=== PATIENT | female | born 1945 | race Caucasian/White ===

== ENCOUNTER 2024-08-23 14:56 | Inpatient (IN) | payer MEDICARE, SELFPAY ==
[2024-08-23] VITALS (18 sets, daily range): BP systolic 113–216; BP diastolic 54–97; PULSE 59–87; RESP 14–29; TEMP 36.4–36.6; O2SAT 89–100; BMI 19.9
--- NOTE | ~2024-08-23 | CT_ITS ---
CT abdomen pelvis w con Ordering provider: Wyatt Ibrahim MD History: 79 years Female with . abdominal pain . Comparison: None. Technique: CT abdomen and pelvis with IV and without oral contrast. Automated exposure control and it erative reconstruction technique were employed. The dose-length product was 207.72 mGy-cm. 100 mL Omn ipaque 350 was given IV. Findings: VISUALIZED LOWER CHEST: Normal. UPPER ABDOMINAL ORGANS: Liver: Normal. Gallbladder: Slightly contracted. Dilated CBD measuring 1.2 cm. Spleen: Normal. Stomach/duodenum: Slightly thickened wall of the stomach. Clinical correlation advised. Pancreas: Normal. Dilated pancreatic duct. Follow-up advised. Adrenals: Normal. Kidneys: Normal. PELVIC ORGANS: The bladder is underfilled with thickened wall. BOWEL AND MESENTERY: Colon: No evidence of diverticulitis. The appendix is not demonstrated. Small Bowel: Normal. No obstruction. Peritoneum/mesentery: No free air or free fluid. No mesenteric lymphadenopathy. RETROPERITONEUM: Aneurysmal dilatation the distal ureters seen measuring 3.2 x 2.8 cm. Moderate ather omatous disease of the abdominal aorta. intramural thrombosis seen in the proximal abdominal aorta. No retroperitoneal lymphadenopathy. MUSCULOSKELETAL: Superficial soft tissues: The superficial soft tissues are normal. Bones: Age appropriate degenerative changes of the spine. IMPRESSION: 1. No evidence of appendicitis, diverticulitis or intestinal obstruction. 2. Abdominal aortic aneurysm measuring 3.2 x 2.8 cm. 3. Dilated common bile duct and pancreatic duct. Follow-up advised. Reviewed, dictated and finalized at location A.
--- NOTE | ~2024-08-23 | US_ITS ---
Limited Abdominal Sonogram: Real-time sonographic imaging of the right upper quadrant was performed. Clinical History: Cholecystitis Findings: The liver appears normal and echotexture. Possible minimal intrahepatic biliary dilatation . Main portal vein demonstrates normal direction of flow. The gallbladder is well distended, and appe ars normal with no evidence of gallstone or wall thickening. The common bile duct measures 8 mm. The visualized pancreas, aorta, and IVC are unremarkable. Impression: Minimally prominent intrahepatic and extra hepatic biliary tree. Correlate with LFTs and clinical fin dings. Consider MRCP for further evaluation as indicated. Reviewed, dictated and finalized at location M. Impression: Minimally prominent intrahepatic and extra hepatic biliary tree. Correlate with LFTs and clinical findings. Consider MRCP for further evaluation as indicated.
--- NOTE | ~2024-08-23 | CT_ITS ---
CTA chest PE protocol Ordering provider: Tyler Black MD History: 79 years Female with . r/o PE . Comparison: None. Technique: CT angiogram chest was performed following timed intravenous injection of contrast. Thin s lice axial images and reformatted coronal images were obtained. Three dimensional reformatted images of the chest were also obtained using a [employer] workstation. . Automated exposure control and iterati ve reconstruction technique were employed. The dose-length product was 191.77 mGy-cm. 100 mL Omnipaqu e 350 was given IV. Findings: PULMONARY ARTERIES: No pulmonary embolus. VISUALIZED THORACIC INLET: Normal. MEDIASTINUM: Aorta/coronary arteries: Mild atheromatous disease. Aberrant right Subclavian artery is noted. Heart/other: The heart is not enlarged. Lymph nodes: No mediastinal or hilar adenopathy. LUNGS: Nodule is seen in the right upper lobe anteriorly measuring 9.2 x 8.8 mm. 3 months follow-up CT is ad vised. Groundglass appearance nodule is also seen in the left upper lobe measuring 1.2 x 1 cm. Atelectasis versus pneumonia is seen in the right upper lobe adjacent to the fissure extending to th e hilum. Fibrotic or post radiation changes are possible. Clinical correlation advised. No pulmonary masses. No effusions. No pneumothorax. VISUALIZED UPPER ABDOMEN: Small sliding hiatus hernia. contrast is seen in the pelvic calyceal system bilaterally. Otherwise, the visualized upper abdomen i s normal. MUSCULOSKELETAL: Soft tissues: The superficial soft tissues are normal. Bones: Age appropriate degenerative changes of the spine. IMPRESSION: 1. No pulmonary embolism. 2. Focal area of atelectasis versus pneumonia extending to the right hilum. Differential include fib rotic changes and postradiation changes. Clinical correlation advised. 3. Nodules in the right and left upper lobes. 3 months follow-up CT is advised. 4. Aberrant right subclavian artery. Reviewed, dictated and finalized at location A. IMPRESSION: 1. No pulmonary embolism. 2. Focal area of atelectasis versus pneumonia extending to the right hilum. Di fferential include fibrotic changes and postradiation changes. Clinical correla tion advised. 3. Nodules in the right and left upper lobes. 3 months follow-up CT is advised . 4. Aberrant right subclavian artery.
--- NOTE | ~2024-08-23 | XR_ITS ---
XR chest 1V portable 08/23/2024 15:24 Indication: Weakness Procedure: 2 view chest Comparison: 04/06/2010 Findings: Linear infiltrate of the right suprahilar region. Heart size normal. There is atheroscleros is and ectasia of the aorta. No edema, pleural effusion or pneumothorax. No acute osseous abnormality . Impression: 1: Linear infiltrate right suprahilar region. Differential diagnosis includes atelectasis/scarring an d pneumonia. Reviewed, dictated and finalized at location A. Impression: 1: Linear infiltrate right suprahilar region. Differential diagnosis includes a telectasis/scarring and pneumonia.
--- NOTE | 2024-08-23 15:06 | ECG_ITS ---
Test Date: 2024-08-23 15:16:14 Measurements Intervals [place] Rate: 64 P: 69 GA: 201 QRS: -79 QRSD: 101 T: 33 QT: 384 QTc: 397 Interpretive Statements SINUS RHYTHM INCOMPLETE RIGHT BUNDLE BRANCH BLOCK [90+ ms QRS DURATION, TERMINAL R IN V1/V2, 40+ ms S IN I/aVL/V4/V5/V6] LEFT ANTERIOR FASCICULAR BLOCK [QRS AXIS <= -45, QR IN I, RS IN II] No previous ECG available for comparison Electronically Signed On 08-23-2024 18:24:59 CDT by Perri Wong
[2024-08-23] MEDS: diazePAM INJ (*CRX) 10 MG/2 ML SYRINGE 2.5 MG IV PUSH ×2 (15:13→18:27)
[2024-08-23] MEDS: SODIUM CHLORIDE 0.9% IV 1,000 ML 999 ML IV CONT (15:13)
[2024-08-23] MEDS: ONDANSETRON INJ 4 MG/2 ML VIAL IV PUSH ×2 (15:13→20:31)
--- OUTSIDE RECORDS SUMMARY | 2024-08-23 15:16 | XMS_ITS ---
Author Name Auto Generated, Auto Generated Organization [facility] Address [address] [place] [address] Phone [phone] Care Team Providers Care Lumber Sorter Name Role Phone Jak Juan [phone] Functional Status No Results Mental Status No Results Allergies and Intolerances Name Onset Date Reaction Severity Latex (Allergy) WedMar 13 01:43:00 EST 2023 codeine (Allergy) WedMar 13 01:43:00 EST 2023 morphine (Allergy) WedMar 13 01:43:00 EST 2023 lamotrigine (Allergy) WedMar 13 01:43:00 EST 20 24 Encounters Program Name Primary Diagnosis Admission Date/Time Dis charge Date/Time Home-based Hospice Sat Mar 11 19 :00:00 EST 2023 Sat May 27 18:59:00 EST 2024 null WedMar 27 19:00 :00 EST 2023 Medications Medication Directions Start Date End Date predniSONE 20 mg tablet 40 mg TABLET Ora l Every 1 Day for 5 Days COPD Wed Feb 01:00:00 EST 2024e Feb 11 15:57:00 EST 2024 Levaquin 500 mg tablet 500 mg TABLET Ora l Every 1 Day for 10 Days EXACERBATION Wed Feb 02 10:00:00 EST 2024e Feb 11 15:57:00 EST 2024 Levaquin 500 mg tablet 500 mg TABLET Ora l Every 1 Day for 10 Days EXACERBATION e Feb 01:00:00 EST 2024 Sat Feb 15 01:00:00 EST 2024 predniSONE 20 mg tablet 40 mg TABLET Ora l Every 1 Day for 5 Days COPD e Feb 01:00:00 EST 2024 Sat Feb 15 01:00:00 EST 2024 traZODone 50 mg tablet 50 mg TABLET Oral 3 Times Daily anxiety WedMay 10:00:00 EST 2024 Sat Feb 15 :00: EST 2024 ipratropium 0.5 mg-albuteroL 3 mg (2.5 mg base)/3 mL nebulization soln 1 vial AMPUL FOR NEBULIZATION (ML) Nebulization PRN for dyspnea WedApr 28:00:00 EST 2024 Sat Feb 15 :00: EST 2024 ondansetron 4 mg disintegrating tablet 4 mg TABLET,DISINTEGRATING Oral PRN q 4 hr WedApr 26:00: EST 2024 Sat Feb 15 :00:00 EST 2024 Requip 0.5 mg tablet 0.5 mg TABLET Oral Hour Of Sleep WedApr 20:00:00 EST 2024 Sat Feb 15 :00:00 EST 2024 traZODone 50 mg tablet 50 mg TABLET Oral 2 Times Daily WedApr 17:00:00 EST 2024May 10 12:17:00 EST 2024 Macrobid 100 mg capsule 100 mg CAPSULE O ral 2 Times Daily for 5 Days POSSIBLE UTI WedApr 10:00:00 EST 2023Apr 15 00:59:00 EST 2024 Mucinex 600 mg tablet, extended release bid TABLET, EXTENDED RELEASE 12 HR Oral PRN, 2 Times Daily cough congestion WedApr 03:00:00 EST 2023 Sat Feb 15 :00:00 EST 2024 OxyCONTIN 60 mg tablet,extended release 60 MG TABLET, EXTENDED RELEASE 12 HR Oral 2 Times Daily WedMar 30:: EST 2023Apr 17 16:02:00 EST 2024 OxyCONTIN 60 mg tablet,crush resistant,extended release 60 MG TABLET,ORAL ONLY,EXTENDED RELEASE 12 HR Oral Every 12 Hours WedMar 30:00:00 EST 2023 Sat Feb 15 :00:00 EST 2024 predniSONE 10 mg tablet 1 tab TABLET Ora l Every 1 Day for 3 Days WedMar 21:00:00 EST 2023Mar 24 00:59:00 EST 2023 SeroqueL 25 mg tablet 25 MG TABLET Oral 2 Times Daily behaviors WedMar 20:00:00 EST 2023 Sat Feb 15 :00:00 EST 2024 predniSONE 10 mg tablet 2 tabs TABLET Or al 1 Time Daily for 3 Days WedMar 18:00: EST 2023Mar 21 00:59:00 EST 2023 predniSONE 10 mg tablet 3tabs TABLET Ora l Every 1 Day for 3 Days COPD WedMar 15:00: EST 2023Mar 18 00:59:00 EST 2023 predniSONE 10 mg tablet 4 tabs TABLET Or al Every 1 Day for 3 Days WedMar 12:00: EST 2023Mar 15 00:59:00 EST 2023 morphine concentrate 20 mg/mL oral syringe (FOR ORAL USE ONLY) 0.5 ml SYRINGE (ML) Sublingual PRN Every 2 Hours SOB, pain WedMar 12:: EST 2023 Sat Feb 15 :: EST 2024 LORazepam IntensoL 2 mg/mL oral concentrate 0.25 ml CONCENTRATE, ORAL Sublingual PRN Every 4 Hours SOB, anxiety WedMar 12:00:00 EST 2023 Sat Feb 15 01:00:00 EST 2024 atropine 1 % eye drops 2 gtts DROPS Subl ingual PRN Every 2 Hours secretions WedMar 12:00: EST 2023 Sat Feb 15 01:00:00 EST 2024 albuterol sulfate HFA 90 mcg/actuation aerosol inhaler 2 puffs HFA AEROSOL WITH ADAPTER (GRAM) Inhalation PRN Every 6 Hours wheezing WedMar 12:: EST 2023 Sat Feb 15 01:00:00 EST 2024 ARIPiprazole 2 mg tablet 2 tabs TABLET O ral Every 1 Day for 2 Days bipolar WedMar 12:: EST 2023Mar 14 00:59:00 EST 2023 azithromycin 500 mg tablet 1 tab TABLET Oral Every 1 Day COPD WedMar 12: EST 2023 Sat Feb 15 01:00:00 EST 2024 DULoxetine 30 mg capsule,delayed release 1 tab CAPSULE,DELAYED RELEASE (ENTERIC COATED) Oral Hour Of Sleep depression WedMar 12: EST 2023 Sat Feb 15 :00: EST 2024 LORazepam 1 mg tablet 1 tab TABLET Oral PRN Every 6 Hours anxiety WedMar 12:00:00 EST 2023 Sat Feb 15 01:00:00 EST 2024 methocarbamoL 500 mg tablet 1 tab TABLET Oral PRN 3 Times Daily muscle relaxant WedMar 12:00:00 EST 2023 Sat Feb 15 01:00:00 EST 2024 oxyCODONE 30 mg tablet 1 tab TABLET Oral PRN Every 4 Hours pain WedMar 12 01:00:00 EST 2023 Sat Feb 15 01:00:00 EST 2024 OxyCONTIN 30 mg tablet,extended release 1 tab TABLET, EXTENDED RELEASE 12 HR Oral 2 Times Daily pain WedMar 12 01:00:00 EST 2023Apr 17 16:02:00 EST 2024 Problems Active Concerns * Chronic obstructive pulmonary disease, unspecified* Code: * Start Date: WedMar 12 00:00:00 EST 2023 * End Date: * Text: * Patient's noncompliance with other medical treatment and regimen due to unspecified reason* Code: * Start Date: WedMar 12 00:00:00 EST 2023 * End Date: * Text: * Presence of left artificial knee joint* Code: * Start Date: WedMar 12 00:00:00 EST 2023 * End Date: * Text: * Personal history of urinary (tract) infections* Code: * Start Date: WedMar 12 00:00:00 EST 2023 * End Date: * Text: * Repeated falls* Code: * Start Date: WedMar 12 00:00:00 EST 2023 * End Date: * Text: * Anxiety disorder, unspecified* Code: * Start Date: WedMar 12 00:00:00 EST 2023 * End Date: * Text: * Gastro-esophageal reflux disease without esophagitis* Code: * Start Date: WedMar 12 00:00:00 EST 2023 * End Date: * Text: * Abdominal aortic ectasia* Code: * Start Date: WedMar 12 00:00:00 EST 2023 * End Date: * Text: * Other intervertebral disc degeneration, lumbar region without mention of lumbar back pain or lower extremity pain* Code: * Start Date: WedMar 12 00:00:00 EST 2023 * End Date: * Text: * Bipolar disorder, unspecified* Code: * Start Date: WedMar 12 00:00:00 EST 2023 * End Date: * Text: * Dorsalgia, unspecified* Code: * Start Date: WedMar 12 00:00:00 EST 2023 * End Date: * Text: * Other chronic pain* Code: * Start Date: WedMar 12 00:00:00 EST 2023 * End Date: * Text: * Anemia in neoplastic disease* Code: * Start Date: WedMar 12 00:00:00 2023 * End Date: * Text: * Malignant neoplasm of upper lobe, right bronchus or lung* Code: * Start Date: WedMar 12 00:00:00 2023 * End Date: * Text: * Dysphagia, unspecified* Code: * Start Date: WedMar 12 00:00:00 2023 * End Date: * Text: * Traumatic hemorrhage of cerebrum, unspecified, without loss of consciousness, subsequent encounter* Code: * Start Date: WedMar 12 00:00:00 EST 2023 * End Date: * Text: * Traumatic subdural hemorrhage without loss of consciousness, subsequent encounter* Code: * Start Date: WedMar 12 00:00:00 EST 2023 * End Date: * Text: * Fracture of angle of right mandible, subsequent encounter for fracture with routine healing* Code: * Start Date: WedMar 12 00:00:00 2023 * End Date: * Text: * Multiple fractures of ribs, right side, subsequent encounter for fracture with routine healing* Code: * Start Date: WedMar 12 00:00:00 2023 * End Date: * Text: * Essential (primary) hypertension* Code: * Start Date: WedMar 12 00:00:00 2023 * End Date: * Text: * Acute and chronic respiratory failure with hypercapnia* Code: * Start Date: WedMar 12 00:00:00 2023 * End Date: * Text: * Acute and chronic respiratory failure with hypoxia* Code: * Start Date: WedMar 12 00:00:00 2023 * End Date: * Text: * [facility]SS_Bereavement - [place] is at high risk for ()Homicidal/Suicidal ideation, (X)Circumstances of (complicated), (X)inadequate coping skills, ( )Disenfranchised Grief, (X)Inadequate Support Systems, ( )Legal concerns, ( )Financial concerns, (X)Signs of distress (sleep, nutrition, socialization, or health deficits).* Code: * Start Date: WedMar 28 00:00:00 2023 * End Date: * Text: LSS_Bereavement - [place] is at high risk for ()Homicidal/Suicidal ideation, (X)Circumstances of (complicated), (X)inadequate coping skills, ( )Disenfranchised Grief, (X)Inadequate Support Systems, ( )Legal concerns, ( )Financial concerns, (X)Signs of distress (sleep, nutrition, socialization, or health deficits). * [facility]SS_Bereavement History- [place] (X)has a history of emotional challenges, ( )history of family violence, ( )abuse, ( )neglect, ()chemical dependency, ( )codependence, ( )Dementia, ( )Psychiatric/mental health history, (X) Chronic and terminal illnesses.* Code: * Start Date: WedMar 28 00:00:00 EST 2023 * End Date: * Text: LSS_Bereavement History- [place] (X)has a history of emotional challenges, ( )history of familyviolence, ( )abuse, ( )neglect, ()chemical dependency, ( )codependence, ( )Dementia, ( )Psychiatric/mental health history, (X) Chronic and terminal illnesses. Reason for Referral
--- OUTSIDE RECORDS SUMMARY | 2024-08-23 15:16 | XMS_ITS | Clinical Summary ---
Author Organization [facility] Address [address] [place] [id number] Care Team Providers Care Websphere Commerce Consultant Name Role Phone Unavailable Primary Care Provider Unavailabl e Social History Tobacco Use Types Packs/Day Years Used Date Smoking Tobacco: Never Assessed Comments Unknown Sex and Gender Information Value Date Recorded Sex Assigned at Not on file Legal Sex Female 8:23 PM CDT Gender Identity Not on file Sexual Orientation Not on file Plan of Treatment Health Maintenance Due Date Last Done Comments Hepatitis C 1963 DTaP, Tdap and Td Vaccines ( 1 - Tdap) 1966 Pneumococcal Vaccine: 50+ Ye ars (1 of 1 - PCV) 1997 Zoster Vaccines (1 of 2) 1997 Dexa Scan (General) 2012 RSV Immunization or 60+ Years (1 - 1-dose 75+ series) 2022 COVID-19 Vaccine (2023-2 5 season) 2023 Meningococcal B Vaccine Aged Out No l onger eligible based on patient's age to complete this topic Meningococcal Vaccine Aged Out No derek melinda eligible based on patient's age to complete this topic RSV Immunizations Under 20 Months Aged Out No longer eligible based on patient's age to complete this topic
--- OUTSIDE RECORDS SUMMARY | 2024-08-23 15:16 | XMS_ITS | Patient Health Record ---
Author Organization [facility] Address [address] [place] [address] Care Team Providers Care Malt Liquors Sales Supervisor Name Role Phone Mendoza Reed Primary Care Provider Roxana Simms [phone] Allergies Allergen (clinical drug ingredient) Drug/Non Drug Allergy documented on EMR Reaction Allergy Type Onset Date Status Codeine Phosphate Unknown Drug Allergy Active lamotrigine lamoTRIgine Unknown Drug Allergy Act armen morphine Morphine Sulfate Unknown Drug Allergy Active Latex Latex Unknown Allergy Active Results Component Value Reference Range Notes Vitamin B12 and Folate (Not yet reviewed by provider) Interpretation: Performing Lab:[facility] [address] [facility], Phone - [phone], Director - [facility]New [facility] Deacon[facility] Hospital[facility] Notes/Report: Vitamin B12 [phone] pg/mL Folate (Folic Acid), Serum 4.5 >3.0 ng/mL A serum folate concentration of less than 3.1 ng/mL is considered to represent clinical deficiency. CBC With Differential/Platel et* (Not yet reviewed by provider) Interpretation: Performing Lab:[facility], [address] [facility] Phone - [phone], Director - PhDRicchiuti Notes/Report: WBC 7.8 3.4-10.8 x10E3/uL RBC 5.15 3.77-5.28 x10E6/uL Hemoglobin 14.6 11.1-15.9 g/dL Hematocrit 44.6 34.0-46.6 % MCV 87 79-97 fL MCH 28.3 26.6-33.0 pg MCHC 32.7 31.5-35.7 g/dL RDW 13.5 11.7-15.4 % Platelets 245 150-450 x10E3/uL Neutrophils 75 Not Estab. % Lymphs 18 Not Estab. % Monocytes 5 Not Estab. % Eos 1 Not Estab. % Basos 1 Not Estab. % Neutrophils (Absolute) 5.9 1.4-7.0 x10E3/uL Lymphs (Absolute) 1.4 0.7-3.1 x10E3/uL Monocytes(Absolute) 0.4 0.1-0.9 x10E3/uL Eos (Absolute) 0.1 0.0-0.4 x10E3/uL Baso (Absolute) 0.1 0.0-0.2 x10E3/uL Immature Granulocytes 0 Not Estab. % Immature Grans (Abs) 0.0 0.0-0.1 x10E3/uL CMP 14 Comprehensive Metabol ic Panel* (Not yet reviewed by provider) Interpretation: Performing Lab:[facility] [place], [address] [facility], Phone - [phone], Director - Coty Notes/Report: Glucose 78 70-99 mg/dL BUN 13 8-27 mg/dL Creatinine 0.77 0.57-1.00 mg/dL eGFR 79 >59 mL/min/1.73 BUN/Creatinine Ratio 17 12-28 Sodium 142 134-144 mmol/L Potassium 4.5 3.5-5.2 mmol/L Chloride 100 96-106 mmol/L Carbon Dioxide, Total 27 20-29 mmol/L Calcium 9.1 8.7-10.3 mg/dL Protein, Total 7.2 6.0-8.5 g/dL Albumin 4.7 3.8-4.8 g/dL Globulin, Total 2.5 1.5-4.5 g/dL Bilirubin, Total <0.2 0.0-1.2 mg/dL Alkaline Phosphatase 86 44-121 IU/L AST (SGOT) 14 0-40 IU/L ALT (SGPT) 7 0-32 IU/L TSH Rfx on Abnormal to Free T4 (Not yet reviewed by provider) Interpretation: Performing Lab:[facility] [place], [address] [facility], [place], Phone - [phone], Director - Coty Notes/Report: TSH 0.585 0.450-4.500 uIU/mL Iron and TIBC* (Not yet revi ewed by provider) Interpretation: Performing Lab:[facility] [place], [address] [facility], [place], Phone - [phone], Director - Coty Notes/Report: Iron Bind.Cap.(TIBC) 326 250-450 ug/dL UIBC 235 118-369 ug/dL Iron 91 27-139 ug/dL Iron Saturation 28 15-55 % 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) Referral Organization [facility] Referring Provider First Name Mendoza Referring Provider Last Name Brianna Referring Provider Speciality Internal M edicine Referred Provider Specialty Home Health Care Referral Priority Routine Reason ANXIETY, LOSS OF HUS BAND, SHE AND HE WERE BOTH ON HOSPICE BUT SHE GOT BETTER Diagnosis 1 Anxiety (F41.9) Referral Organization [facility] Referring Provider First Name Ewa Referring Provider Last Name Mei edmonds Referring Provider Speciality Mental hea lt counseling Referred Provider Specialty Behavioral H ealt Referral Priority Routine Medications Medication SIG (Take, Route, Frequency, Duration) Notes Start Date End Date Status Methadone HCl 5 MG 1 tablet Orally twic e daily 08/18/2024 Active diazePAM 5 MG 1 tablet Orally 3 times a day for 14 days twice a day and at bedtime 08/18/2024 Active rOPINIRole HCl 0.5 MG 1 tablet Orally 3 times a day for 30 days twice a day and at bedtime Active traZODone HCl 100 MG 1 tablet at bedtime Orally Once a day for 30 days Active Albuterol Sulfate HFA 108 (90 Base) MCG/ACT 2 puffs as needed Inhalation three times daily Not-Taking Docusate Sodium 100 MG 1 capsule as need ed Orally Once a day for 30 day(s) Not-Taking Ondansetron HCl 4 MG 1 tablet Orally every 6 hours for 30 days As needed nausea or vomiting Active QUEtiapine Fumarate 25 MG 1 tablet at be dtime Orally Once a day for 30 days Active Debrox 6.5 % 5 drops into affecte d ear Otic Twice a day for 4 days 07/26/2024 Not-Taking Phenazopyridine HCl 100 MG 1 TABLET Oral ly 3 times a day for 2 days 08/18/2024 Active Sertraline HCl 50 MG 1 tablet Orally Onc e a day for 30 day(s) Active Nicotine 7 MG/24HR 1 patch to skin Transdermal Once a day for 30 days remove at bedtime 08/18/2024 Active Social History Tobacco Use: Social History Observation Description Date Details (start date - stop date) Never Smoker NA - NA Tobacco Control (Standard) Question Answer Notes Tobacco use: Nonsmoker Problems Problem Type SNOMED Code ICD Code Onset Dates Problem Status W/U Status Risk Notes Problem Chronic pain syndrome (117620199) Chronic pain syndrome (G89.4) Active confirmed Problem Emphysema (48461821) Emphysema, unspecified (J43.9) Active confirmed Problem Insomnia (697559085) Insomnia (G47.00) Active confirmed Problem Anxiety (03977943) Anxiety (F41.9) Active confirmed Problem COPD - Chronic obstructive pulmonary disease (98288029) COPD (chronic obstructive pulmonary disease) (J44.9) Active confirmed Problem Restless legs syndrome (03466656) Restless leg syndrome (G25.81) Active confirmed Problem Benzodiazepine dependence (017510316) Benzodiazepine dependence (F13.20) Active confirmed Problem Tobacco user (990859270) Cigarette nicotine dependence (F17.200) Active confirmed Problem Parkinson's disease (disorder) (32609096) Parkinson disease, symptomatic (G20.A1) Active confirmed Vital Signs Heart Rate 78 /min 08/18/2024 Temperature 97.8 degrees Fahrenheit 08/18/2024 Respiratory Rate 16 /min 08/18/2024 Blood pressure diastolic 70 mm Hg 08/18/2024 Oximetry 94 % 08/18/2024 Height 62 in 08/18/2024 Blood pressure systolic 122 mm Hg 08/18/2024 Weight 131.7 lbs 08/18/2024 BMI 24.09 kg/m2 08/18/2024 Encounters Encounter Location Date Provider Diagnosis [address] [address] 07/26/2024 Roxana Simms Anxiety F41.9 ; Insomnia G47.00 ; Restless leg syndrome G25.81 ; Chronic pain syndrome G89.4 ; Nausea with vomiting, unspecified R11.2 ; Wax in ear H61.20 ; COPD (chronic obstructive pulmonary disease) J44.9 and Emphysema, unspecified J43.9 [facility] [address] [place] [address] 08/18/2024 Mendoza Reed Restless leg syndrom e G25.81 ; Chronic pain syndrome G89.4 ; COPD (chronic obstructive pulmonary disease) J44.9 ; Anxiety F41.9 ; Benzodiazepine dependence F13.20 ; Parkinson disease, symptomatic G20.A1 ; UTI (urinary tract infection) N39.0 ; Fatigue R53.83 ; Adhesive capsulitis of right shoulder M75.01 and Cigarette nicotine dependence F17.[address] [place] [address] 07/31/2024 Roxanajeanna Rubyco Anxiety F41.9 [facility] [address] [place] [address] 08/10/2024 Roxanajeanna Ibarrangco Anxiety F41.9 Assessments Encounter Date Diagnosis (ICD Code) Assessment Notes Treatment Notes Treatment Clinical Notes Section Notes 08/18/2024 Chronic pain syndrome (ICD-10 - G89.4) 08/18/2024 Restless leg syndrome (ICD-10 - G25.81) 08/10/2024 Anxiety (ICD-10 - F41.9) 07/31/2024 Anxiety (ICD-10 - F41.9) 07/26/2024 Insomnia (ICD-10 - G47.00) 07/26/2024 Anxiety (ICD-10 - F41.9) tapering dose 07/26/2024 Restless leg syndrome (ICD-10 - G25.81) 08/18/2024 COPD (chronic obstructive pulmonary disease) (ICD-10 - J44.9) 08/18/2024 Anxiety (ICD-10 - F41.9) 07/26/2024 Chronic pain syndrome (ICD-10 - G89.4) 08/18/2024 Benzodiazepine dependence (ICD-10 - F13.20) 07/26/2024 Nausea with vomiting, unspecified (ICD-10 - R11.2) 08/18/2024 Parkinson disease, symptomatic (ICD-10 - G20.A1) 07/26/2024 Wax in ear (ICD-10 - H61.20) 07/26/2024 COPD (chronic obstructive pulmonary disease) (ICD-10 - J44.9) 08/18/2024 UTI (urinary tract infection) (ICD-10 - N39.0) NO UTI BY U/A. SYMPTOMATIC TREATMENT. 08/18/2024 Fatigue (ICD-10 - R53.83) 07/26/2024 Emphysema, unspecified (ICD-10 - J43.9) 08/18/2024 Adhesive capsulitis of right shoulder (ICD-10 - M75.01) 08/18/2024 Cigarette nicotine dependence (ICD-10 - F17.200) Plan Of Treatment Pending Test Test Name Order Date Urinalysis In-House, Routine 08/18/2024 Future Test Test Name Order Date Vitamin B12 and Folate 08/18/2024 Iron and TIBC* 08/18/2024 CBC With Differential/Platelet* 08/19/19 25 CMP 14 Comprehensive Metabolic Panel* TSH Rfx on Abnormal to Free T4 Next Appt Details Provider Name:Mendoza Reed , 09/01/2024 10:00:00 AM, [address], [place], [address], Insurance Providers Payer Name Payer Address Payer Phone Subscriber Number Group Number Insured Name Patient Relationship to Insured Coverage Start Date Coverage End Date MEDICARE PART A [address] [facility] [place] [phone] [id number] David Spence Self - patient is the insured 5 Medical (General) History Medical History History ICD Code GERD Heart Failure Bipolar Disorder unspecified Depression unspecified Anxiety Disorder unspecified Acute & Chronic Respiratory Failure w/Hy poxia COPD UNSPECIFIED Essential Hypertension Surgical History Surgery Date(Month/Year) Bilateral Knee Surgery Hospitalization History Reason Date(Month/Year) see surgeries
[2024-08-23 15:24] LABS: Basophils Absolute Auto 0.1 K/mm3 (0.0-0.1); Basophils Percent Auto 0.7 % (0.2-1.2); Eosinophils Absolute Auto 0.1 K/mm3 (0-0.3); Hematocrit 41.9 % (37.0-47.0); Immature Granulocyte Absolute 0.03 K/mm3 (0.00-0.031); Immature Granulocyte Percent A 0.4 % (0-0.5); Lymphocytes Absolute Auto 0.95 K/mm3 (0.9-3.2); Lymphocytes Percent Auto 14.2 % (18.3-44.2); Mean Corpuscular Hemoglobin 27.2 pg (26-34); Mean Corpuscular Volume 87.7 fl (80-100); Mean Platelet Volume 9.8 fl (7.4-10.4); Monocytes Absolute Auto 0.4 K/mm3 (0.1-0.6); Monocytes Percent Auto 5.5 % (2.6-8.5); Neutrophils Absolute Auto 5.2 K/mm3 (1.3-6.7); Neutrophils Percent Auto 78.2 % (45.5-73.1); Platelet Count Result 193 k/mm3 (150-375); Red Blood Count 4.78 M/mm3 (4.2-5.4); Red Cell Distribution Width 13.8 % (11.5-14.5); White Blood Count 6.7 K/mm3 (4.5-10.0)
--- NOTE | 2024-08-23 15:31 | ED_ITS ---
HPI - General Adult General Chief complaint: Nausea/Vomiting/Diarrhea Stated complaint: N/V Time Seen by Provider: 08/23/24 15:01 History of Present Illness HPI narrative: Patient 79-year-old female who presents emergency department with chief complaint of nausea and lightheadedness. The patient also reports he has been extremely anxious she is requesting her Valium the patient states that she feels very nervous reports that she feels lightheaded and reports that she has not really been eating and drinking much lately. Related Data Allergies Allergy/AdvReac Type Severity Reaction Status Date / Time gabapentin Allergy Mild Verified 06/04/10 12:58 codeine Allergy Unknown Verified 03/03/10 07:50 latex Allergy Unknown Verified 03/03/10 07:50 Review of Systems 2 Review of Systems: A 10 system review of systems was completed on the patient and is negative except for what is stated in the HPI. Nursing and ancillary documentation was reviewed. [facility] Family History Family History Mother Family history of lung cancer Father Family history of lung cancer, Onset Age: 72 Social History Social History Alcohol intake: never Exam 2 Narrative: GENERAL: Well-appearing, well-nourished, and in no acute distress. HEAD: Normocephalic, atraumatic. EYES: PERRLA and EOMI. ENT: Nares clear, no rhinorrhea or epistaxis. Mucous membranes moist. NECK: Supple. CHEST: Clear to auscultation. No respiratory distress. HEART: Regular rate and rhythm. No murmur heard. Normal peripheral pulses. ABDOMEN: Soft, nontender, nondistended, normal active bowel sounds. EXTREMITIES: Normal range of motion. No edema. SKIN: Warm, dry, no rash. NEURO: No focal deficits. Alert and oriented x3. PSYCH: Normal mood and affect. Course Vital Signs Vital signs: Vital Signs Temperature 36.6 C 08/23/24 14:57 Pulse Rate 65 08/23/24 14:57 Respiratory Rate 29 H 08/23/24 14:57 Blood Pressure 216/85 H 08/23/24 14:57 Pulse Oximetry 92 08/23/24 14:57 Oxygen Delivery Room Air 08/23/24 14:57 Temperature 36.6 C 08/23/24 14:57 Pulse Rate 66 08/23/24 18:00 Respiratory Rate 19 08/23/24 18:00 Blood Pressure 172/78 H 08/23/24 15:50 Pulse Oximetry 89 L 08/23/24 18:00 Oxygen Delivery Room Air 08/23/24 14:57 Medical Decision Making MDM Narrative Medical decision making narrative: Differential diagnosis includes intra-abdominal infection, ACS, pneumonia, anxiety Chest x-ray did show atelectasis versus infiltrate the patient was extremely anxious in the emergency department CT scan of the abdomen pelvis showed no significant abnormalities. The patient was given her normal doses of Valium in the emergency department with ambulation the patient did desaturate. Due to this the patient was treated for community-acquired pneumonia and case was discussed with the hospitalist Vital Signs Vital Signs: Vital Signs Temperature 36.6 C 08/23/24 14:57 Pulse Rate 65 08/23/24 14:57 Respiratory Rate 29 H 08/23/24 14:57 Blood Pressure 216/85 H 08/23/24 14:57 Pulse Oximetry 92 08/23/24 14:57 Oxygen Delivery Room Air 08/23/24 14:57 Temperature 36.6 C 08/23/24 14:57 Pulse Rate 66 08/23/24 18:00 Respiratory Rate 19 08/23/24 18:00 Blood Pressure 172/78 H 08/23/24 15:50 Pulse Oximetry 89 L 08/23/24 18:00 Oxygen Delivery Room Air 08/23/24 14:57 Lab Data 08/23/24 15:12 08/23/24 15:12 Labs: Lab Results 08/23/24 08/23/24 08/23/24 Range/Units 15:12 15:51 17:49 WBC 6.7 (4.5-10.0) K/mm3 RBC 4.78 (4.2-5.4) M/mm3 Hgb 13.0 (12.0-15.0) g/dL Hct 41.9 (37.0-47.0) % MCV 87.7 (80-100) fl MCH 27.2 (26-34) pg MCHC 31.0 L (32-36) g/dl RDW 13.8 (11.5-14.5) % Plt Count 193 (150-375) k/mm3 MPV 9.8 (7.4-10.4) fl Immature Gran % (Auto) 0.4 (0-0.5) % Neut % (Auto) 78.2 H (45.5-73.1) % Lymph % (Auto) 14.2 L (18.3-44.2) % [place] % (Auto) 5.5 (2.6-8.5) % Eos % (Auto) 1.0 (0-4.4) % Baso % (Auto) 0.7 (0.2-1.2) % Lymph # (Auto) 0.95 (0.9-3.2) K/mm3 [place] # (Auto) 0.4 (0.1-0.6) K/mm3 Eos # (Auto) 0.1 (0-0.3) K/mm3 Baso # (Auto) 0.1 (0.0-0.1) K/mm3 Abs Immat Gran (auto) 0.03 (0.00-0.031) K/mm3 Absolute Neuts (auto) 5.2 (1.3-6.7) K/mm3 Absolute Nucleated RBC 0.000 (0.0-0.012) K/mm3 Nucleated RBC % 0.0 (0.0-0.2) % PT 13.1 (11.1-14.7) Seconds INR 1.0 APTT 26.3 (22.3-36.8) Seconds Sodium 139 (137-145) mmol/L Potassium 4.3 (3.4-5.0) mmol/L Chloride 102 (98-107) mmol/L Carbon Dioxide 31 H (22-30) mmol/L Anion Gap 6 (4-12) mmol/L BUN 14 (7-17) mg/dL Creatinine 0.59 L (0.7-1.0) mg/dL Estim Creat Clear Calc Not Reportable Estimated GFR > 60 (59 - ) Glucose 95 (65-110) mg/dL Lactic Acid 0.6 L (0.7-2.0) mmol/L Calcium 8.6 (8.4-10.2) mg/dL Magnesium 2.2 (1.6-2.3) mg/dL Total Bilirubin 0.5 (0.2-1.3) mg/dL AST 24 (14-36) U/L ALT 13 (6-35) U/L Alkaline Phosphatase 71 (38-126) U/L Troponin I < 0.012 < 0.012 (0.000-0.034) ng/mL Total Protein 7.0 (6.3-8.2) g/dL Albumin 4.1 (3.5-5.1) g/dL Lipase 216 (23-300) U/L Procalcitonin < 0.0 ng/mL Urine Color Dark yellow (Yellow) Urine Appearance Cloudy H (Clear) Urine pH 7.5 (5.0-9.0) Ur Specific [place] 1.014 (1.001-1.035) Urine Protein Negative (Negative) mg/dL Urine Glucose (UA) Negative (Negative) mg/dL Urine Ketones Negative (Negative) mg/dL Ur Blood (Man) Negative (Negative) Urine Nitrate Negative (Negative) Urine Bilirubin Negative (Negative) Urine Urobilinogen 1.0 (<2.0) mg/dL Leukocyte Esterase Rfl Negative (Negative) VENTURA/UL Urine RBC 0-2 (0-2) /hpf Urine WBC 0-5 (0-3) /hpf Ur Squamous Epith Cells None seen (Few) /hpf Urine Bacteria None seen /hpf Urine Casts 0-2 Discharge Plan Discharge Clinical Impression: Pneumonia, Acute hypoxic respiratory failure, Anxiety Patient Disposition: Still a Patient Condition: Stable Patient Language: Vietnamese Follow-up/Referrals: UNKNOWN,DOCTOR [Primary Care Provider] - Time of Disposition: 18:43
[2024-08-23 15:33] LABS: Alanine Aminotransferase 13 U/L (6-35); Albumin Level 4.1 g/dL (3.5-5.1); Alkaline Phosphatase 71 U/L (38-126); Anion Gap 6 mmol/L (4-12); Aspartate Amino Transferase 24 U/L (14-36); Bilirubin,Total 0.5 mg/dL (0.2-1.3); Blood Urea Nitrogen 14 mg/dL (7-17); Calcium 8.6 mg/dL (8.4-10.2); Carbon Dioxide 31 mmol/L (22-30); Chloride 102 mmol/L (98-107); Estimated Glomerular Filt Rate > 60; Glucose 95 mg/dL (65-110); Lipase 216 U/L (23-300); Magnesium 2.2 mg/dL (1.6-2.3); Potassium 4.3 mmol/L (3.4-5.0); Sodium 139 mmol/L (137-145)
[2024-08-23 15:34] LABS: Lactic Acid Reflex 0.6 mmol/L (0.7-2.0)
[2024-08-23 15:40] LABS: Prothrombin Time 13.1 Seconds (11.1-14.7)
[2024-08-23 15:41] LABS: Partial Thromboplastin Time 26.3 Seconds (22.3-36.8); Troponin I < 0.012 ng/mL (0.000-0.034)
[2024-08-23 16:03] LABS: Procalcitonin < 0.0 ng/mL
[2024-08-23 16:25] LABS: Add Urine Microscopic? YES; Appearance Urine Cloudy (Clear); Bacteria Urine None Seen /hpf; Bilirubin Urine Negative (Negative); Blood Urine Negative (Negative); Color Urine Dark Yellow (Yellow); Glucose Urine UA Negative (Negative); Ketones Urine Negative (Negative); Leukocyte Esterase Ur Negative LEU/UL (Negative); Nitrate Urine Negative (Negative); Non Pathogenic Casts 0-2; Protein Urine Negative (Negative); RBC Urine 0-2 /hpf (0-2); Specific Grav Ur 1.014 (1.001-1.035); Squamous Epithelial Cell Urine None Seen /hpf (Few); WBC Urine 0-5 /hpf (0-3); pH Urine 7.5 (5.0-9.0)
--- NOTE | 2024-08-23 16:27 | PC.NURSE ---
Marina patients daughter called for patient update. gave update with patient permission, all questions answered. call back number [phone]
--- NOTE | 2024-08-23 17:45 | ECG_ITS ---
Test Date: 2024-08-23 17:49:52 Measurements Intervals [place] Rate: 61 P: 79 WI: 218 QRS: -57 QRSD: 103 T: 34 QT: 403 QTc: 407 Interpretive Statements SINUS RHYTHM WITH FIRST DEGREE AV BLOCK INCOMPLETE RIGHT BUNDLE BRANCH BLOCK [90+ ms QRS DURATION, TERMINAL R IN V1/V2, 40+ ms S IN I/aVL/V4/V5/V6] LEFT ANTERIOR FASCICULAR BLOCK [QRS AXIS <= -45, QR IN I, RS IN II] Compared to ECG 08/23/2024 15:16:14 First degree AV block now present Electronically Signed On 08-23-2024 18:35:10 CDT by Perri Wong
[2024-08-23 18:25] LABS: Troponin I < 0.012 ng/mL (0.000-0.034)
--- NOTE | 2024-08-23 18:37 | PC.NURSE ---
when ambulating pt to bedside commode the O2 dropped to 69% on RA. pt O2 raffi to 89% at rest on RA. notified provider of this finding
[2024-08-23] MEDS: AZITHROMYCIN 500 MG/NS 250 ML 500 MG/250 ML BAG 250 MG IVPB (19:22)
--- NOTE | 2024-08-23 19:31 | PC.NURSE ---
called Micki Bejarano pt daughter and provided update. all questions answered.
[2024-08-23] MEDS: IPRATROPIUM 0.5 MG/ALBUTEROL SULFATE 2.5 MG AMPUL.NEB 3 ML INHALATION (19:35)
--- NOTE | 2024-08-23 19:38 | P.HP_ITS ---
H&P: HPI History of Present Illness Date/Time: 08/23/24 19:38 Chief Complaint: Nausea vomiting diarrhea Narrative: 79-year-old female with a known past medical history of sigmoid diverticulosis, anxiety, nervousness, and throat tightening visited the ER due to nausea, vomiting, and diarrhea. Pertinent ED labs: WBC 6.7, hemoglobin 13, hematocrit 41.9, platelet 193, sodium 139, potassium 4.3, anion gap 6, creatinine 0.5, GFR greater than 60, trope less than 0.012 UA no significant finding for UTI COVID RSV flu pending CT abdomen/pelvis:IMPRESSION: 1. No evidence of appendicitis, diverticulitis, or intestinal obstruction. 2. Abdominal aortic aneurysm measuring 3.2 x 2.8 cm. 3. Dilated common bile duct and pancreatic duct. Follow-up advised. Chest x-ray: Linear infiltrate right suprahilar region. Differential diagnosis includes atelectasis/scarring and pneumonia. The patient is admitted to the setting of pneumonia. The patient will be started on ceftriaxone and azithromycin. Currently, the patient is saturating mid-90s on 2 L. The patient reports she is living [facility]. Patient was on hospice, but they took her off hospice, and she is not able to confirm why she was on hospice. Patient is a chronic smoker and says she was using home O2, but not now. Called her daughter, but she didn't cherry picker operator the phone. Lately, she has had episodes of nausea, vomiting, and diarrhea, but she reports that her diarrhea has revolved. Review of Systems Review of Systems: A 10 system review of systems was completed on the patient and is negative except for what is stated in the HPI. Nursing and ancillary documentation was reviewed. [facility] Family History Family History Mother Family history of lung cancer Father Family history of lung cancer, Onset Age: 72 Social History Social History Smoking status: Current every day smoker Tobacco type: cigarettes Alcohol intake: never Substance use: never Do You Feel Safe in your Home?: Yes Lack of Transportation: No Lack of Food: Never True Current Housing: I Have Housing Concerned About Future Housing: No Difficulty Paying Gas/Electric Bills: No Difficulty Paying for Meds: No Currently Unemployed: No Education: High School Diploma/GED Difficulty w/ Childcare or Family Care: No Spiritual care concerns: No Meds Home Medications and Allergies Home Medications Medication Instructions Recorded Confirmed Type diazepam 5 mg tablet 5 mg PO TID 08/23/24 08/23/24 History methadone 5 mg tablet 5 mg PO BID 08/23/24 08/23/24 History ondansetron HCl 4 mg tablet 4 mg PO Q6H PRN nausea and vomiting 08/23/24 08/23/24 History quetiapine 25 mg tablet 25 mg PO .bedtime 08/23/24 08/23/24 History ropinirole 0.5 mg tablet 0.5 mg PO TID 08/23/24 08/23/24 History trazodone 100 mg tablet 100 mg PO .bedtime 08/23/24 08/23/24 History Allergies Allergy/AdvReac Type Severity Reaction Status Date / Time gabapentin Allergy Mild Unknown Verified 08/23/24 20:06 codeine Allergy Unknown Unknown Verified 08/23/24 20:06 lamotrigine Allergy Unknown Unknown Verified 08/23/24 20:06 latex Allergy Unknown Unknown Verified 08/23/24 20:06 morphine Allergy Unknown Unknown Verified 08/23/24 20:06 Vital Signs Vital Signs - 24 hr 08/23/24 14:57 08/23/24 15:39 08/23/24 15:50 Temperature 97.9 F Pulse Rate 65 60 70 Respiratory Rate 29 H 16 18 Blood Pressure 216/85 H 172/78 H Pulse Oximetry 92 97 92 Oxygen Delivery Room Air 08/23/24 15:53 08/23/24 16:30 08/23/24 17:01 Temperature Pulse Rate 64 63 65 Respiratory Rate 16 14 15 Blood Pressure Pulse Oximetry 100 99 97 Oxygen Delivery 08/23/24 17:45 08/23/24 18:00 08/23/24 19:00 Temperature Pulse Rate 70 66 60 Respiratory Rate 18 19 16 Blood Pressure Pulse Oximetry 89 L 92 Oxygen Delivery 08/23/24 19:15 Temperature Pulse Rate 59 L Respiratory Rate 14 Blood Pressure Pulse Oximetry 97 Oxygen Delivery Exam Narrative: GENERAL: Well-appearing, well-nourished, and in no acute distress. HEAD: Normocephalic, atraumatic. EYES: PERRLA and EOMI. ENT: Nares clear, no rhinorrhea or epistaxis. Mucous membranes moist. NECK: Supple. CHEST: Clear to auscultation. No respiratory distress. HEART: Regular rate and rhythm. No murmur heard. Normal peripheral pulses. ABDOMEN: Soft, nontender, nondistended, normal active bowel sounds. EXTREMITIES: Normal range of motion. No edema. SKIN: Warm, dry, no rash. NEURO: No focal deficits. Alert and oriented x3. PSYCH: Normal mood and affect. H&P: Results Labs Labs: Short CBC 08/23/24 Range/Units 15:12 WBC 6.7 (4.5-10.0) K/mm3 Hgb 13.0 (12.0-15.0) g/dL Hct 41.9 (37.0-47.0) % Plt Count 193 (150-375) k/mm3 BMP 08/23/24 15:12 Sodium 139 Potassium 4.3 Chloride 102 Carbon Dioxide 31 H BUN 14 Creatinine 0.59 L Glucose 95 Calcium 8.6 Cardiac Enzymes 08/23/24 08/23/24 Range/Units 15:12 17:49 Troponin I < 0.012 < 0.012 (0.000-0.034) ng/mL Liver Function 08/23/24 Range/Units 15:12 Total Bilirubin 0.5 (0.2-1.3) mg/dL AST 24 (14-36) U/L ALT 13 (6-35) U/L Alkaline Phosphatase 71 (38-126) U/L Albumin 4.1 (3.5-5.1) g/dL Urine 08/23/24 Range/Units 15:51 Urine Color Dark yellow (Yellow) Urine Appearance Cloudy H (Clear) Urine pH 7.5 (5.0-9.0) Ur Specific [place] 1.014 (1.001-1.035) Urine Protein Negative (Negative) mg/dL Urine Glucose (UA) Negative (Negative) mg/dL Assessment and Plan Assessment and plan (1) Anxiety: Code(s): F41.9 - Anxiety disorder, unspecified Status: Acute (2) Pneumonia: Code(s): J18.9 - Pneumonia, unspecified organism Status: Acute Plan PNA Vital signs improved and stable RSV COVID flu pending CTA pending Started on Ceftriaxone and azithromycin monitor cultures MRSA pending encourage oral intake NVD Diarrhea resolved PPI BID Sucralfate PO Dilated common bile duct and pancreatic duct. Order US RUQ AST,ALT normal Abdominal aortic aneurysm measuring 3.2 x 2.8 cm Follow up with OP Vascular surgeon Repeat Abdominal US in 3-6 months Anxiety Continue home med diazepam 5 mg p.o. t.i.d. Quetiapine 25 mg p.o. HS Trazodone 100 mg p.o. q.h.s. DVT prophylaxis: Lovenox 40 mg Subq Hospitalist MIPS Advance Care Plan I have confirmed that the patient's Advanced Care Plan is present, code status is documented, or surrogate decision maker is listed in patient medical record.: Yes Medication Reconciliation I have utilized all available resources to obtain, update and review the patients current medications (includes all prescriptions, OTC, herbals, cannabis, and nutritional supplements).: Yes
--- NOTE | 2024-08-23 20:17 | PC.NURSE ---
pt reports nausea coming back. called hospitalist who is providing new orders.
[2024-08-23 20:59] LABS: Influenza A QL RT-PCR Negative (Negative); Influenza B QL RT-PCR Negative (Negative); RSV RNA, RT-PCR Negative (Negative); SARS-CoV-2 RNA PCR Negative (Negative)
--- NOTE | 2024-08-23 21:04 | ADMGEN ---
This patient, David Spence, was admitted to [facility] Room 315-02. Patient/family oriented to hospital policies and general routines including ID bracelet, bed and alarms, visiting hours, pain management, procedures, bathroom and other care routines, personal items, smoking policy, room service/diet, and visiting hours. Information on how to activate the Rapid Response Team has been discussed. Patient/Family are encouraged to report perceived risks to care and to ask questions if they do not understand what they are told or what they should do.
[2024-08-23] MEDS: ACETAMINOPHEN 325 MG TABLET 650 MG PO (21:38)
[2024-08-23] MEDS: SUCRALFATE 1 GM TABLET PO (23:37)
[2024-08-23] MEDS: methADONE HCL (*CRX) 5 MG TABLET PO (23:37)
[2024-08-23] MEDS: rOPINIRole HCL 0.5 MG TABLET PO (23:38)
[2024-08-23] MEDS: PANTOPRAZOLE SODIUM IV 40 MG VIAL IV PUSH (23:38)
[2024-08-23] MEDS: diazePAM (*CRX) 5 MG TABLET PO (23:38)
[2024-08-24] VITALS (16 sets, daily range): BP systolic 119–157; BP diastolic 61–74; PULSE 50–81; RESP 12–20; TEMP 36.2–36.6; O2SAT 91–96
[2024-08-24] MEDS: IPRATROPIUM 0.5 MG/ALBUTEROL SULFATE 2.5 MG AMPUL.NEB 3 ML INHALATION ×3 (01:30→21:07)
[2024-08-24] MEDS: ONDANSETRON HCL ODT 4 MG TABLET PO (03:45)
[2024-08-24] MEDS: TEMAZEPAM (*CRX) 15 MG CAPSULE PO (03:48)
[2024-08-24] MEDS: SUCRALFATE 1 GM TABLET PO ×4 (06:11→20:27)
[2024-08-24] MEDS: methADONE HCL (*CRX) 5 MG TABLET PO ×2 (08:30→16:32)
[2024-08-24] MEDS: ACETAMINOPHEN 325 MG TABLET 650 MG PO (08:32)
[2024-08-24] MEDS: ONDANSETRON INJ 4 MG/2 ML VIAL IV PUSH (08:33)
[2024-08-24] MEDS: ENOXAPARIN 40 MG/0.4 ML SYRINGE SUB-Q (08:33)
[2024-08-24] MEDS: PANTOPRAZOLE SODIUM IV 40 MG VIAL IV PUSH ×2 (08:33→21:30)
[2024-08-24] MEDS: diazePAM (*CRX) 5 MG TABLET PO ×3 (08:33→16:33)
[2024-08-24] MEDS: rOPINIRole HCL 0.5 MG TABLET PO ×3 (08:48→21:34)
--- NOTE | 2024-08-24 08:51 | PM.IMPN ---
Progress Note: A&P Assessment and Plan (1) Acute hypoxic respiratory failure: Code(s): J96.01 - Acute respiratory failure with hypoxia Status: Acute Assessment and Plan: SPO2 89% on admission, placed on 2L NC. Weaned back to room air. - Oxygen supplementation: Weaned back to RA, maintain spo2 > 90 - Suspected cause: pneumonia - CXR: Linear infiltrate right suprahilar region. Differential diagnosis includes atelectasis/scarring and pneumonia. - Chest CTA: No PE. Focal area of atelectasis versus pneumonia extending to the right hilum. Differential include fibrotic changes and postradiation changes. Clinical correlation advised. Nodules in the right and left upper lobes. 3 months follow-up CT is advised. Aberrant right subclavian artery. - See plan below (2) Pneumonia: Code(s): J18.9 - Pneumonia, unspecified organism Status: Acute Assessment and Plan: CXR: Linear infiltrate right suprahilar region. Differential diagnosis includes atelectasis/scarring and pneumonia. Chest CTA: No PE. Focal area of atelectasis versus pneumonia extending to the right hilum. Differential include fibrotic changes and postradiation changes. Clinical correlation advised. Nodules in the right and left upper lobes. 3 months follow-up CT is advised. Aberrant right subclavian artery. - started on CAP tx: azithromycin ceftriaxone on 08/23 - Viral PCR: negative for Flu/COVID/RSV - MRSA negative - IS - Consider ordering legionella, mycoplasma and pneumococcal - Weaned back to room air, maintain spo2 > 90 - Monitor vital signs, I&Os, neuro status and patient is a fall risk - Follow WBC, serum electrolytes, temperature curves and cultures (3) Nausea vomiting and diarrhea: Code(s): R11.2 - Nausea with vomiting, unspecified; R19.7 - Diarrhea, unspecified Status: Acute Assessment and Plan: CT abdomen/pelvis showing dilated common bile duct and pancreatic duct. Follow-up advised. Nausea/vomiting and diarrhea resolved PPI BID Sucralfate PO (4) Common bile duct dilatation: Code(s): K83.8 - Other specified diseases of biliary tract Status: Acute Assessment and Plan: CT abdomen/pelvis showing dilated common bile duct and pancreatic duct. RUQ US showed minimally prominent intrahepatic and extrahepatic biliary tree LFTs WNL Patient remains asymptomatic at this time denying nausea/vomiting/diarrhea and tolerating diet well (5) Dilated pancreatic duct: Code(s): K86.89 - Other specified diseases of pancreas Status: Acute Assessment and Plan: CT abdomen/pelvis showing dilated common bile duct and pancreatic duct. RUQ US showed minimally prominent intrahepatic and extrahepatic biliary tree LFTs and lipase WNL Patient remains asymptomatic at this time denying nausea/vomiting/diarrhea and tolerating diet well (6) Abdominal aortic aneurysm (AAA) 3.0 cm to 5.0 cm in diameter in female: Code(s): I71.40 - Abdominal aortic aneurysm, without rupture, unspecified Status: Acute Assessment and Plan: Abdomen/pelvis CT showing a AAA of 3.2x2.8cm Follow up with OP Vascular surgeon Repeat Abdominal US in 3-6 months (7) Anxiety: Code(s): F41.9 - Anxiety disorder, unspecified Status: Acute Assessment and Plan: Continue home med diazepam 5 mg p.o. t.i.d. Quetiapine 25 mg p.o. HS Trazodone 100 mg p.o. q.h.s. Time Spent With Patient Time with patient: 25 - 35 minutes Subjective Date/time seen: 08/24/24 08:51 Interval history: 79-year-old female with a known past medical history of sigmoid diverticulosis, anxiety, nervousness, and throat tightening came to the hospital due to nausea, vomiting, and diarrhea. Patient is pleasant sitting up comfortably on the side of her bed eating lunch. She is tolerating her diet well denying any nausea/vomiting/diarrhea and abdominal pain. She states that her shortness of breath has greatly improved since admission and has been able to be weaned back to room air. She states that she has been able to ambulate around her room without worsening shortness of breath or dizziness/lightheadedness. She has no other complaints denying chest pain and palpitations. Review of Systems Review of Systems: All systems reviewed & are unremarkable except as noted in HPI and below Exam Narrative: AF HR 60 RR 14 SPO2 92 RA BP 133/69 General: female in no acute respiratory distress who is nontoxic appearing, sitting on side of bed HEENT: Normocephalic. Atraumatic. Extraocular movement intact. Sclera clear and anicteric. No facial asymmetry. Chest: Lungs are slightly coarse to auscultation RLL. No wheezes. CV: Heart was regular rate and rhythm. Abd: Abdomen was soft. Nontender. Nondistended. Positive bowel sounds. Ext: No clubbing, cyanosis, or edema. DP pulses bilaterally. Neuro: Patient is alert and oriented x3. Speech is clear. Objective Data Vital Signs Vital Signs: Vital Signs - 24 hr 08/23/24 14:57 08/23/24 15:39 08/23/24 15:50 Temperature 97.9 F Pulse Rate 65 60 70 Respiratory Rate 29 H 16 18 Blood Pressure 216/85 H 172/78 H Pulse Oximetry 92 97 92 Oxygen Delivery Room Air Oxygen Flow Rate Fraction of Inspired Oxygen 08/23/24 15:53 08/23/24 16:15 08/23/24 16:30 Temperature Pulse Rate 64 63 Respiratory Rate 16 14 Blood Pressure 164/85 H Pulse Oximetry 100 99 Oxygen Delivery Oxygen Flow Rate Fraction of Inspired Oxygen 08/23/24 16:30 08/23/24 17:01 08/23/24 17:45 Temperature Pulse Rate 65 70 Respiratory Rate 15 18 Blood Pressure 178/75 H Pulse Oximetry 97 Oxygen Delivery Oxygen Flow Rate Fraction of Inspired Oxygen 08/23/24 17:45 08/23/24 18:00 08/23/24 18:34 Temperature Pulse Rate 66 Respiratory Rate 19 Blood Pressure 192/97 H 174/97 H Pulse Oximetry 89 L Oxygen Delivery Oxygen Flow Rate Fraction of Inspired Oxygen 08/23/24 18:45 08/23/24 19:00 08/23/24 19:15 Temperature Pulse Rate 60 59 L Respiratory Rate 16 14 Blood Pressure 150/86 H Pulse Oximetry 92 97 Oxygen Delivery Oxygen Flow Rate Fraction of Inspired Oxygen 08/23/24 19:30 08/23/24 19:35 08/23/24 19:38 Temperature Pulse Rate 66 64 64 Respiratory Rate 18 20 20 Blood Pressure Pulse Oximetry 97 97 Oxygen Delivery Nasal Cannula Oxygen Flow Rate 2 Fraction of Inspired Oxygen 28 08/23/24 21:02 08/23/24 21:10 08/24/24 00:00 Temperature 97.5 F L Pulse Rate 87 80 64 Respiratory Rate 20 19 Blood Pressure 113/54 L Pulse Oximetry 93 91 Oxygen Delivery Room Air Oxygen Flow Rate Fraction of Inspired Oxygen 21 08/24/24 01:33 08/24/24 01:44 08/24/24 04:00 Temperature Pulse Rate 57 L 60 64 Respiratory Rate 20 20 Blood Pressure Pulse Oximetry Oxygen Delivery Oxygen Flow Rate Fraction of Inspired Oxygen 08/24/24 05:37 Temperature 97.9 F Pulse Rate 65 Respiratory Rate 12 Blood Pressure 119/61 Pulse Oximetry 91 Oxygen Delivery Oxygen Flow Rate Fraction of Inspired Oxygen Intake/Output Intake/Output: Intake & Output 08/21/24 08/22/24 08/23/24 08/24/24 23:59 23:59 23:59 23:59 Intake Total 1300 400 Balance 1300 400 Meds/Results Medications: Active Medications Generic Name Dose Route Start Last Admin Trade Name Freq PRN Reason Stop Dose Admin Acetaminophen 650 mg 08/23/24 18:39 08/24/24 08:32 Acetaminophen 325 Mg Tablet PO 650 mg Q4H PRN Administration Mild Pain (1-3) or Fever Albuterol/Ipratropium 3 ml 08/23/24 20:00 08/24/24 01:30 Ipratropium 0.5 Mg/Albuterol Sulfate 2.5 Mg Ampul.Neb 3 Ml INHALATION 3 ml Q6HRT SOFIA Administration Diazepam 5 mg 08/23/24 23:15 08/24/24 08:33 Diazepam (*Crx) 5 Mg Tablet PO 5 mg TID SOFIA Administration Enoxaparin Sodium 40 mg 08/24/24 09:00 08/24/24 08:33 Enoxaparin 40 Mg/0.4 Ml Syringe SUB-Q 40 mg DAILY SOFIA Administration Ceftriaxone Sodium 1 gm in 50 mls @ 100 mls/hr 08/24/24 20:00 Rocephin 1 Gm/Ns 50 Ml IVPB Q24H SOFIA Azithromycin 500 mg in 250 mls @ 250 mls/hr 08/24/24 20:00 Zithromax IVPB Q24H SOFIA Methadone HCl 5 mg 08/23/24 23:15 08/24/24 08:30 Methadone Hcl (*Crx) 5 Mg Tablet PO 5 mg BID SOFIA Administration Miscellaneous Information 1 each 08/24/24 00:01 Zofran Iv/Po Duplicate Prn Indication XX 09/23/24 00:00 CLARIFY SOFIA Ondansetron HCl 4 mg 08/23/24 20:16 08/24/24 08:33 Ondansetron Inj 4 Mg/2 Ml Vial IV PUSH 4 mg Q4H PRN Administration Nausea And Vomiting Ondansetron HCl 4 mg 08/23/24 23:06 08/24/24 03:45 Ondansetron Hcl Odt 4 Mg Tablet PO 4 mg Q6H PRN Administration nausea and vomiting Pantoprazole Sodium 40 mg 08/23/24 23:15 08/24/24 08:33 Pantoprazole Sodium Iv 40 Mg Vial IV PUSH 40 mg Q12HR SOFIA Administration Quetiapine Fumarate 25 mg 08/24/24 21:00 Quetiapine Fumarate 25 Mg Tablet PO HS SOFIA Ropinirole HCl 0.5 mg 08/23/24 23:15 08/24/24 08:48 Ropinirole Hcl 0.5 Mg Tablet PO 0.5 mg DAILY@0800,1600,2000 SOFIA Administration Sucralfate 1 gm 08/23/24 23:15 08/24/24 06:11 Sucralfate 1 Gm Tablet PO 1 gm ACHS SOFIA Administration Temazepam 15 mg 08/23/24 23:06 08/24/24 03:48 Temazepam (*Crx) 15 Mg Capsule PO 15 mg HS PRN Administration Insomnia Trazodone HCl 100 mg 08/24/24 21:00 Trazodone Hcl 50 Mg Tablet PO HS SOFIA Radiology Results: ITS Impressions Chest X-Ray 08/23/24 15:26 Impression: 1: Linear infiltrate right suprahilar region. Differential diagnosis includes atelectasis/scarring and pneumonia. Abdomen/Pelvis CT 08/23/24 17:22 IMPRESSION: 1. No evidence of appendicitis, diverticulitis or intestinal obstruction. 2. Abdominal aortic aneurysm measuring 3.2 x 2.8 cm. 3. Dilated common bile duct and pancreatic duct. Follow-up advised. Chest CTA 08/23/24 21:12 IMPRESSION: 1. No pulmonary embolism. 2. Focal area of atelectasis versus pneumonia extending to the right hilum. Differential include fibrotic changes and postradiation changes. Clinical correlation advised. 3. Nodules in the right and left upper lobes. 3 months follow-up CT is advised. 4. Aberrant right subclavian artery. Labs Labs: Laboratory Results - last 24 hr 08/23/24 08/23/24 08/23/24 15:12 15:51 17:49 WBC 6.7 RBC 4.78 Hgb 13.0 Hct 41.9 MCV 87.7 MCH 27.2 MCHC 31.0 L RDW 13.8 Plt Count 193 MPV 9.8 Immature Gran % (Auto) 0.4 Neut % (Auto) 78.2 H Lymph % (Auto) 14.2 L [place] % (Auto) 5.5 Eos % (Auto) 1.0 Baso % (Auto) 0.7 Lymph # (Auto) 0.95 [place] # (Auto) 0.4 Eos # (Auto) 0.1 Baso # (Auto) 0.1 Abs Immat Gran (auto) 0.03 Absolute Neuts (auto) 5.2 Absolute Nucleated RBC 0.000 Nucleated RBC % 0.0 PT 13.1 INR 1.0 APTT 26.3 Sodium 139 Potassium 4.3 Chloride 102 Carbon Dioxide 31 H Anion Gap 6 BUN 14 Creatinine 0.59 L Estim Creat Clear Calc Not Reportable Estimated GFR > 60 Glucose 95 Lactic Acid 0.6 L Calcium 8.6 Magnesium 2.2 Total Bilirubin 0.5 AST 24 ALT 13 Alkaline Phosphatase 71 Troponin I < 0.012 < 0.012 Total Protein 7.0 Albumin 4.1 Lipase 216 Procalcitonin < 0.0 Urine Color Dark yellow Urine Appearance Cloudy H Urine pH 7.5 Ur Specific [place] 1.014 Urine Protein Negative Urine Glucose (UA) Negative Urine Ketones Negative Ur Blood (Man) Negative Urine Nitrate Negative Urine Bilirubin Negative Urine Urobilinogen 1.0 Leukocyte Esterase Rfl Negative Urine RBC 0-2 Urine WBC 0-5 Ur Squamous Epith Cells None seen Urine Bacteria None seen Urine Casts 0-2 Influenza A (RT-PCR) Influenza B (RT-PCR) RSV (RT-PCR) SARS-CoV-2 RNA (RT-PCR) 08/23/24 20:17 WBC RBC Hgb Hct MCV MCH MCHC RDW Plt Count MPV Immature Gran % (Auto) Neut % (Auto) Lymph % (Auto) [place] % (Auto) Eos % (Auto) Baso % (Auto) Lymph # (Auto) [place] # (Auto) Eos # (Auto) Baso # (Auto) Abs Immat Gran (auto) Absolute Neuts (auto) Absolute Nucleated RBC Nucleated RBC % PT INR APTT Sodium Potassium Chloride Carbon Dioxide Anion Gap BUN Creatinine Estim Creat Clear Calc Estimated GFR Glucose Lactic Acid Calcium Magnesium Total Bilirubin AST ALT Alkaline Phosphatase Troponin I Total Protein Albumin Lipase Procalcitonin Urine Color Urine Appearance Urine pH Ur Specific [place] Urine Protein Urine Glucose (UA) Urine Ketones Ur Blood (Man) Urine Nitrate Urine Bilirubin Urine Urobilinogen Leukocyte Esterase Rfl Urine RBC Urine WBC Ur Squamous Epith Cells Urine Bacteria Urine Casts Influenza A (RT-PCR) Negative Influenza B (RT-PCR) Negative RSV (RT-PCR) Negative SARS-CoV-2 RNA (RT-PCR) Negative Quality VTE Prophylaxis VTE prophylaxis: pharmacologic ordered
[2024-08-24 09:36] LABS: Hematocrit 39.9 % (37.0-47.0); Hemoglobin 12.8 g/dL (12.0-15.0); Mean Corpuscular HGB Conc 32.1 g/dl (32-36); Mean Corpuscular Volume 87.3 fl (80-100); Mean Platelet Volume 9.8 fl (7.4-10.4); Platelet Count Result 183 k/mm3 (150-375); Red Blood Count 4.57 M/mm3 (4.2-5.4); White Blood Count 5.6 K/mm3 (4.5-10.0)
[2024-08-24 09:52] LABS: Alanine Aminotransferase 12 U/L (6-35); Albumin Level 3.9 g/dL (3.5-5.1); Alkaline Phosphatase 67 U/L (38-126); Anion Gap 3 mmol/L (4-12); Aspartate Amino Transferase 23 U/L (14-36); Bilirubin,Total 0.6 mg/dL (0.2-1.3); Blood Urea Nitrogen 9 mg/dL (7-17); Calcium 8.4 mg/dL (8.4-10.2); Carbon Dioxide 33 mmol/L (22-30); Chloride 103 mmol/L (98-107); Estimated CRCL calculation 46 ml/min; Estimated Glomerular Filt Rate > 60; Glucose 120 mg/dL (65-110); Potassium 4.3 mmol/L (3.4-5.0); Sodium 139 mmol/L (137-145)
--- NOTE | 2024-08-24 10:52 | PCRCNOTE ---
Window of time for administration has passed. See next scheduled administration.
[2024-08-24] MEDS: NICOTINE (*PBKC) 14 MG PATCH 1 PATCH TRANSDERM ×2 (18:08→18:10)
[2024-08-24] MEDS: traZODone HCL 50 MG TABLET 100 MG PO (20:27)
[2024-08-24] MEDS: QUEtiapine FUMARATE 25 MG TABLET PO (20:27)
[2024-08-24] MEDS: AZITHROMYCIN 500 MG/NS 250 ML 500 MG/250 ML BAG 250 MG IVPB (22:13)
[2024-08-25] VITALS (7 sets, daily range): BP systolic 116; BP diastolic 53; PULSE 54–71; RESP 14–15; TEMP 36.6; O2SAT 95–96
[2024-08-25] MEDS: IPRATROPIUM 0.5 MG/ALBUTEROL SULFATE 2.5 MG AMPUL.NEB 3 ML INHALATION ×2 (02:28→07:54)
[2024-08-25 06:20] LABS: Hematocrit 39.2 % (37.0-47.0); Hemoglobin 12.1 g/dL (12.0-15.0); Mean Corpuscular HGB Conc 30.9 g/dl (32-36); Mean Corpuscular Hemoglobin 27.5 pg (26-34); Mean Corpuscular Volume 89.1 fl (80-100); Mean Platelet Volume 9.7 fl (7.4-10.4); Platelet Count Result 160 k/mm3 (150-375); Red Cell Distribution Width 13.9 % (11.5-14.5); White Blood Count 3.8 K/mm3 (4.5-10.0)
[2024-08-25 06:30] LABS: Alanine Aminotransferase 12 U/L (6-35); Albumin Level 3.8 g/dL (3.5-5.1); Alkaline Phosphatase 58 U/L (38-126); Anion Gap 6 mmol/L (4-12); Aspartate Amino Transferase 22 U/L (14-36); Bilirubin,Total 0.3 mg/dL (0.2-1.3); Blood Urea Nitrogen 8 mg/dL (7-17); Calcium 8.5 mg/dL (8.4-10.2); Carbon Dioxide 31 mmol/L (22-30); Chloride 105 mmol/L (98-107); Estimated CRCL calculation 51 ml/min; Estimated Glomerular Filt Rate > 60; Glucose 89 mg/dL (65-110); Potassium 3.4 mmol/L (3.4-5.0); Sodium 142 mmol/L (137-145)
[2024-08-25] MEDS: diazePAM (*CRX) 5 MG TABLET PO ×2 (09:10→12:24)
[2024-08-25] MEDS: NICOTINE (*PBKC) 14 MG PATCH 1 PATCH TRANSDERM (09:12)
[2024-08-25] MEDS: PANTOPRAZOLE SODIUM IV 40 MG VIAL IV PUSH (09:12)
[2024-08-25] MEDS: rOPINIRole HCL 0.5 MG TABLET PO (09:12)
[2024-08-25] MEDS: methADONE HCL (*CRX) 5 MG TABLET PO (09:12)
[2024-08-25] MEDS: ENOXAPARIN 40 MG/0.4 ML SYRINGE SUB-Q (09:12)
[2024-08-25] MEDS: SUCRALFATE 1 GM TABLET PO (12:24)
--- NOTE | 2024-08-25 13:15 | P.DS_ITS ---
DS: Admitting Diagnosis Discharge Date 08/25/2024 Admitting Diagnosis Acute hypoxic respiratory failure pneumonia Nausea vomiting and diarrhea Dilated pancreatic duct Dilated common bile duct Abdominal aortic annular Anxiety DS: Discharge Diagnosis Discharge Diagnosis (1) Acute hypoxic respiratory failure: Code(s): J96.01 - Acute respiratory failure with hypoxia Status: Acute (2) Pneumonia: Code(s): J18.9 - Pneumonia, unspecified organism Status: Acute (3) Nausea vomiting and diarrhea: Code(s): R11.2 - Nausea with vomiting, unspecified; R19.7 - Diarrhea, unspecified Status: Acute (4) Common bile duct dilatation: Code(s): K83.8 - Other specified diseases of biliary tract Status: Acute (5) Dilated pancreatic duct: Code(s): K86.89 - Other specified diseases of pancreas Status: Acute (6) Abdominal aortic aneurysm (AAA) 3.0 cm to 5.0 cm in diameter in female: Code(s): I71.40 - Abdominal aortic aneurysm, without rupture, unspecified Status: Acute (7) Anxiety: Code(s): F41.9 - Anxiety disorder, unspecified Status: Acute DS: Summary Hospital Course Reason for hospitalization: Acute hypoxic respiratory failure pneumonia Nausea vomiting and diarrhea Dilated pancreatic duct Dilated common bile duct Abdominal aortic annular Anxiety Hospital Course: 79-year-old female with a known past medical history of sigmoid diverticulosis, anxiety, nervousness, and throat tightening came to the hospital due to nausea, vomiting, and diarrhea. CT abdomen/pelvis showing dilated common bile duct and pancreatic duct. RUQ US showed minimally prominent intrahepatic and extrahepatic biliary tree. LFTs and lipase WNL. Patient remains asymptomatic denying nausea/vomiting/diarrhea and tolerating regular diet well. Discussed with patient that if symptoms recur she is to return to hospital for reevaluation. She states understanding. SPO2 89% on admission, placed on 2L NC. Weaned back to room air prior to discharge. CXR showed linear infiltrate right suprahilar region. Chest CTA showed no PE. Focal area of atelectasis versus pneumonia extending to the right hilum. Differential include fibrotic changes and postradiation changes. Nodules in the right and left upper lobes. 3 months follow-up CT is advised. Aberrant right subclavian artery. Patient started on IV antibiotics for pneumonia, transitioned to PO at time of discharge to complete the course. Abdomen/pelvis CT also showed AAA of 3.2x2.8cm. Patient to follow up with OP Vascular surgeon and obtain a repeat Abdominal US in 3-6 months. States understanding. Patient had no complaints at time of discharge denying chest pain, shortness a breath, palpitations, nausea/vomiting, diarrhea, and abdominal pain. She states that she feels as though she is back to her baseline and is ready for discharge. Patient discharged back to her assisted living in a stable condition. She is to follow up with her primary care provider in 1 week. Status at Discharge Functional status at discharge: independent ambulation Time Spent with Patient Time attestation: Total time spent providing and/or coordinating discharge services: Time spent: Greater than 30 minutes Exam Narrative: AF HR 62 RR 14 SPO2 95 BP 116/65 General: female in no acute respiratory distress who is nontoxic appearing, sitting on side of bed HEENT: Normocephalic. Atraumatic. Extraocular movement intact. Sclera clear and anicteric. No facial asymmetry. Chest: Lungs are clear to auscultation bilaterally with slight diminishment to RLL. No wheezes. CV: Heart was regular rate and rhythm. Abd: Abdomen was soft. Nontender. Nondistended. Positive bowel sounds. Ext: No clubbing, cyanosis, or edema. DP pulses bilaterally. Neuro: Patient is alert and oriented x3. Speech is clear. DS: Data Data Completed and Pending Completed studies during hospitalization: abdomen US Chest CTA Abdomen/pelvis CT Chest XR Labs on day of discharge: Labs from last 24 hours 08/25/24 06:11 WBC 3.8 L RBC 4.40 Hgb 12.1 Hct 39.2 MCV 89.1 MCH 27.5 MCHC 30.9 L RDW 13.9 Plt Count 160 MPV 9.7 Sodium 142 Potassium 3.4 Chloride 105 Carbon Dioxide 31 H Anion Gap 6 BUN 8 Creatinine 0.62 L Estim Creat Clear Calc 51 Estimated GFR > 60 Glucose 89 Calcium 8.5 Total Bilirubin 0.3 AST 22 ALT 12 Alkaline Phosphatase 58 Total Protein 6.0 L Albumin 3.8 Preliminary micro results at discharge 08/23/24 18:53 Blood Culture - Preliminary Blood 08/23/24 18:53 Blood Culture - Preliminary Blood Discharge Plan Discharge Attending physician on discharge: Roderick Hill Discharging Clinician: Michelle Anthony Anticipated Discharge Date/Time: 08/25/24 10:58 Patient Disposition: NH Alf/Asst Living Activity: as tolerated Diet: as tolerated and heart healthy Discharge Instructions: Discharge disposition: Patient admitted to the hospital for shortness of breath, diagnosed with pneumonia On admission requiring oxygen but has since been weaned back to room air Take medications as prescribed Augmentin twice a day start tonight, course to be completed 08/30 morning Azithromycin daily start tonight, course to be completed 08/27 Attached is information on this medication Patient also reporting nausea and vomiting She is now tolerating diet well, all symptoms have resolved. Patient has an abdominal aortic aneurysm measuring 3.2x2.8 cm No acute intervention required at this time Follow up with vascular surgeon, obtain referral from primary care provider Repeat ultrasound to reevaluate in 3-6 months Monitor blood pressures Take caution while standing, rising, or moving Change positions slowly taking a break between each position change If you standing feel dizzy sit back down and take a break Encouraged to continue with yearly vaccinations Return to the emergency department if he developed sudden shortness of breath, chest pain, nausea, vomiting, upset stomach or intractable diarrhea Return to the emergency department if you develop fever greater than 101.5 Follow-up with the primary care physician within 1-2 weeks Thank you for choosing [facility] for your healthcare needs Patient Instructions: Antibiotic Form, Amoxicillin/Clavulanate Potassium (By mouth), Azithromycin (By mouth), Nonruptured Abdominal Aortic Aneurysm (DC), Pneumonia (DC) Patient Language: Citizen Of [place] Stand Alone Forms: General Discharge Information Follow-up/Referrals: UNKNOWN,DOCTOR [Non-Staff] - 1 Week Discharge Medications: New sucralfate 1 gram Tablet 1 g PO ACHS Qty: 30 0RF azithromycin 500 mg tablet 500 mg PO DAILY Qty: 3 0RF amoxicillin-pot clavulanate 875-125 mg tablet 1 tablet PO Q12H Qty: 10 0RF Continued diazepam 5 mg tablet 5 mg PO TID methadone 5 mg tablet 5 mg PO BID ondansetron HCl 4 mg tablet 4 mg PO Q6H PRN (Reason: nausea and vomiting) quetiapine 25 mg tablet 25 mg PO .bedtime ropinirole 0.5 mg tablet 0.5 mg PO TID Patient Comments: at 8am, 4pm, and 8pm trazodone 100 mg tablet 100 mg PO .bedtime sertraline 50 mg tablet 50 mg PO HS Date of admission: 08/24/24 07:31 Primary Care Provider: Demi,Roxana Admitting Provider: Triston Burns Attending physician on admission: Michelle Anthony Condition: Stable Hospitalist MIPS Heart Failure (Exclusion) Patient has history of Heart Transplant or Left Ventricular Assistive Device?: No IF YES, STOP HERE Heart Failure (Qualifier) Patient has current or prior documentation of LVEF less than or equal to 40%, or mod/servere depressed LVSF?: No IF NO, STOP HERE
== END 2024-08-25 14:35 | DRG 193 ==
LOC: ANHED 18:43 → ANH3MEDSUR 19:44
PROVIDERS: General Practice; Admitting Provider Internal Medicine; Emergency Provider Emergency Medicine; PCP Nurse Practitioner Family; Visit Provider Student in an Organized Health Care Education/Training Program
DX: J18.9 Pneumonia, unspecified organism (principal); J96.01 Acute respiratory failure with hypoxia; I71.40 Abdominal aortic aneurysm, without rupture, unspecified; K86.89 Other specified diseases of pancreas; K83.8 Other specified diseases of biliary tract; K57.30 Diverticulosis of large intestine without perforation or abscess without bleeding; R11.2 Nausea with vomiting, unspecified; R19.7 Diarrhea, unspecified; F41.9 Anxiety disorder, unspecified; Z20.822 Contact with and (suspected) exposure to COVID-19
CPT/HCPCS: 36415; 71045; 71275; 74177; 76705; 80053; 81001; 83605; 83690; 83735; 84145; 84484; 85025; 85027; 85610; 85730; 87040; 87637; 93005; 94640; 96361; 96365; 96367; 96375; 96376; 99285; A9270; G0378; J0456; J0696; J1650; J2405; J2470; J3360; J7030; Q9967

== ENCOUNTER 2024-09-22 11:21 | Outpatient (CLI) | payer MEDICARE, SELFPAY ==
--- NOTE | 2024-09-22 | ECG_ITS ---
Test Date: 2024-09-22 12:20:52 Measurements Intervals [place] Rate: 61 P: 44 TX: 241 QRS: 0 QRSD: 107 T: 39 QT: 413 QTc: 419 Interpretive Statements SINUS RHYTHM WITH FIRST DEGREE AV BLOCK INCOMPLETE RIGHT BUNDLE BRANCH BLOCK BORDERLINE T WAVE ABNORMALITY- INFERIOR LEADS BASELINE ARTIFACT- I, II, AVR, AVL, AVF, V1-V6 BORDERLINE ECG Compared to ECG 08/23/2024 17:49:52 NO SIGNIFICANT CHANGE Electronically Signed On 09-22-2024 13:14:50 CDT by Ben Bunch D.O.
--- NOTE | ~2024-09-22 | XR_ITS ---
Clinical Indication: Cough PA and lateral views of the chest: Comparison: 08/23/2024 Findings: Stable probable scar scarring in the right upper lobe. Probable COPD.. Cardiomediastinal s ilhouette is within normal limits. Bones and soft tissues are unremarkable. Impression: COPD with probable chronic right upper lobe scarring, similar to prior exam. Reviewed, dictated and finalized at [facility]. Impression: COPD with probable chronic right upper lobe scarring, similar to prior exam.
--- OUTSIDE RECORDS SUMMARY | 2024-09-22 11:34 | XMS_ITS ---
Author Organization Formerly [facility] Address [address] [place] [address] Care Team Providers Care Freight Sales Broker Name Role Phone Mendoza Reed Primary Care Provider REASON FOR VISIT 2 Week F/U Encounters Encounter Location Date Provider Diagnosis [place] [address] [place] [address] 09/01/2024 Mendoza Reed Plan Of Treatment No Information Progress Notes * David ANDRADEDOB:1945 (79 yo F)Acc No.[id number]:09/01/2024 UNLOCKED PROGRESS NOTE Progress Notes Patient: David WHITMORE Provider: Christos Reed :1945 A ge:79 Y S ex:Female Date:09/01/2024 Address:[address] [place], [place] [id number] Subjective: * Chief Complaints: * 1 . 2 Week F/U. * Medical History: Objective: * Vitals: Assessment: Plan: * Treatment: * * Electronic signature of Tasneem Reed , [id number] on 09/22/2024 at 11:34 AM CDT Sign off status: Pending * Provider: Christos Reed Date: 09/01/2024 Generated for Meñoi ng/Faxing/eTransmitting on: 0 09/22/2024 11:34 AM CDT
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
--- OUTSIDE RECORDS SUMMARY | 2024-09-22 11:34 | XMS_ITS | Patient Health Record ---
Author Organization [facility] Address [address] [place] [address] Care Team Providers Care Justowriter Operator Name Role Phone Mendoza Reed Primary Care Provider [phone] Roxana Simms [phone] Allergies Allergen (clinical drug ingredient) Drug/Non Drug Allergy documented on EMR Reaction Allergy Type Onset Date Status Codeine Phosphate Unknown Drug Allergy Active lamotrigine lamoTRIgine Unknown Drug Allergy Act armen morphine Morphine Sulfate Unknown Drug Allergy Active Latex Latex Unknown Allergy Active Results Component Value Reference Range Notes Iron and TIBC* Reviewed date:08/25/2024 11:26:58 AM Interpretation: Performing Lab:[facility] [address] [place] [address], Phone - [phone], [facility] Notes/Report: Iron Bind.Cap.(TIBC) 326 250-450 ug/dL UIBC 235 118-369 ug/dL Iron 91 27-139 ug/dL Iron Saturation 28 15-55 % TSH Rfx on Abnormal to Free T4 Reviewed date:08/25/2024 11:26:50 AM Interpretation: Performing Lab:[facility] [employer], Phone - [phone], Director - [facility] Notes/Report: TSH 0.585 0.450-4.500 uIU/mL CMP 14 Comprehensive Metabol ic Panel* Reviewed date:08/25/2024 11:26:42 AM Interpretation: Performing Lab:[facility], Phone - [phone], Director - [facility] Notes/Report: Glucose 78 70-99 mg/dL BUN 13 [...] 0-40 IU/L ALT (SGPT) 7 0-32 IU/L CBC With Differential/Platel et* Reviewed date:08/25/2024 11:26:33 AM Interpretation: Performing Lab:[facility] [place], [address] [facility], Phone - [phone], Director - [place] Notes/Report: WBC 7.8 3.4-10.8 x10E3/uL RBC 5.15 [...] % Immature Grans (Abs) 0.0 0.0-0.1 x10E3/uL Vitamin B12 and Folate Reviewed date:08/25/2024 11:26:17 AM Interpretation: Performing Lab:[facility], [address] [facility], Phone - [phone], Director - [place] Notes/Report: Vitamin B12 990 823-2722 pg/mL Folate (Folic Acid), Serum 4.5 >3.0 ng/mL A serum folate concentration of less than 3.1 ng/mL is considered to represent clinical deficiency. 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) Referral Organization [facility] Referring Provider First Name Mendoza Referring Provider Last Name Brianna Referring Provider Speciality Internal M edicine Referred Provider Specialty Home Health Care Referral Priority Routine Reason ANXIETY, LOSS OF HUS BAND, SHE AND HE WERE BOTH ON HOSPICE BUT SHE GOT BETTER Diagnosis 1 Anxiety (F41.9) Referral Organization [facility] Referring Provider First Name Ewa Referring Provider Last Name Mei edmonds Referring Provider Speciality Mental [facility] counseling Referred Provider Specialty Behavioral H ealt Clinical Notes Angie Blanchard 11:18:02 AM >Call to client, no answer, [place] ARIAS Michelle R 08/30/2024 01:05:12 PM >Call to client, no answer., Angie Blanchard 08/31/2024 12:41:41 PM >Call to client, no answer. WIll send letter due to 3rd outreach reached. Referral Priority Routine Medications Medication SIG (Take, Route, Fr equency, Duration) Notes Start Date End Date Status Methadone HCl 5 MG 0.5 tablet Orally ev neena 8 hours for 28 days 09/22/2024 Active traZODone HCl 100 MG 1 tablet at bedtime Orally Once a day for 30 days Active rOPINIRole HCl 0.5 MG 1 tablet Orally twice a day for 30 days twice a day and at bedtime Activ e Ondansetron HCl 4 MG 1 tablet Orally every 6 hours for 30 days As needed nausea or vomiting Act armen Sertraline HCl 50 MG 1 tablet Orally Onc e a day for 30 day(s) Active diazePAM 2 MG 2 tablets Orally maximo ry 8 hours for 28 days 09/22/2024 Active Social History Tobacco Use: Social History Observation Description Date Details (start date - stop date) Never Smoker NA - NA Tobacco Control (Standard) Question Answer Notes Tobacco use: Nonsmoker Problems Problem Type SNOMED Code ICD Code Onset Dates Problem Status W/U Status Risk Notes Problem Chronic pain syndrome (568686863) Chronic pain syndrome (G89.4) Active confirmed Problem Emphysema (33323555) Emphysema, unspecified (J43.9) Active confirmed Problem Insomnia (696083438) Insomnia (G47.00) Active confirmed Problem Anxiety (98867036) Anxiety (F41.9) Active confirmed Problem COPD - Chronic obstructive pulmonary disease (11204322) COPD (chronic obstructive pulmonary disease) (J44.9) Active confirmed Problem Restless legs syndrome (31080023) Restless leg syndrome (G25.81) Active confirmed Problem Benzodiazepine dependence (626775886) Benzodiazepine dependence (F13.20) Active confirmed Problem Tobacco user (081631414) Cigarette nicotine dependence (F17.200) Active confirmed Problem Parkinson's disease (disorder) (06048511) Parkinson disease, symptomatic (G20.A1) Active confirmed Vital Signs Heart Rate 80 /min 09/22/2024 Temperature 97.9 degrees Fahrenheit 09/22/2024 Respiratory Rate 16 /min 09/22/2024 Blood pressure diastolic 80 mm Hg 09/22/2024 Oximetry 94 % 08/18/2024 Height 62 in 09/22/2024 Blood pressure systolic 138 mm Hg 09/22/2024 Weight 136.0 lbs 09/22/2024 BMI 24.87 kg/m2 09/22/2024 Encounters Encounter Location Date Provider Diagnosis [facility] [address] [place] [address] 09/22/2024 Mendoza Reed Syncope and collapse R55 ; Parkinson disease, symptomatic G20.A1 ; Benzodiazepine dependence F13.20 ; Opioid use F11.90 ; Restless leg syndrome G25.81 ; Insomnia G47.00 ; Fatigue R53.83 and Cough R05.[address] [address] 07/26/2024 Roxana Tanwangco Anxiety F41.9 ; Insomnia G47.00 ; Restless leg syndrome G25.81 ; Chronic pain syndrome G89.4 ; Nausea with vomiting, unspecified R11.2 ; Wax in ear H61.20 ; COPD (chronic obstructive pulmonary disease) J44.9 and Emphysema, unspecified J43.9 [facility] [address] [place], [place] [address] [address] 08/18/2024 Mendoza Reed Restless leg syndrom e G25.81 ; Chronic pain syndrome G89.4 ; COPD (chronic obstructive pulmonary disease) J44.9 ; Anxiety F41.9 ; Benzodiazepine dependence F13.20 ; Parkinson disease, symptomatic G20.A1 ; UTI (urinary tract infection) N39.0 ; Fatigue R53.83 ; Adhesive capsulitis of right shoulder M75.01 and Cigarette nicotine dependence F17.[address] [place] [address] 07/31/2024 Roxana Tanwangco Anxiety F41.9 [facility] [address] [place] [address] [place] [address] 08/10/2024 Roxana Tanwangco Anxiety F41.[address] [place] [address] 09/05/2024 Mendoza Reed Assessments Encounter Date Diagnosis (ICD Code) Assessment Notes Treatment Notes Treatment Clinical Notes Section Notes 09/22/2024 Syncope and collapse (ICD-10 - R55) GO TO THE EMERGENCY DEPARTMENT IF YOU FAINT AGAIN. 09/22/2024 Parkinson disease, symptomatic (ICD-10 - G20.A1) 07/26/2024 Insomnia (ICD-10 - G47.00) 07/26/2024 Anxiety (ICD-10 - F41.9) tapering dose 07/31/2024 Anxiety (ICD-10 - F41.9) 08/10/2024 Anxiety (ICD-10 - F41.9) 08/18/2024 Chronic pain syndrome (ICD-10 - G89.4) 08/18/2024 Restless leg syndrome (ICD-10 - G25.81) 08/18/2024 COPD (chronic obstructive pulmonary disease) (ICD-10 - J44.9) 07/26/2024 Restless leg syndrome (ICD-10 - G25.81) 09/22/2024 Benzodiazepine dependence (ICD-10 - F13.20) DECREASE DIAZEPAM DOSE 09/22/2024 Opioid use (ICD-10 - F11.90) DECREASE METHADONE DOSE 08/18/2024 Anxiety (ICD-10 - F41.9) 07/26/2024 Chronic pain syndrome (ICD-10 - G89.4) 07/26/2024 Nausea with vomiting, unspecified (ICD-10 - R11.2) 08/18/2024 Benzodiazepine dependence (ICD-10 - F13.20) 09/22/2024 Restless leg syndrome (ICD-10 - G25.81) 08/18/2024 Parkinson disease, symptomatic (ICD-10 - G20.A1) 09/22/2024 Insomnia (ICD-10 - G47.00) STOP QUETIAPINE 07/26/2024 Wax in ear (ICD-10 - H61.20) 08/18/2024 UTI (urinary tract infection) (ICD-10 - N39.0) NO UTI BY U/A. SYMPTOMATIC TREATMENT. 07/26/2024 COPD (chronic obstructive pulmonary disease) (ICD-10 - J44.9) 07/26/2024 Emphysema, unspecified (ICD-10 - J43.9) 08/18/2024 Fatigue (ICD-10 - R53.83) 09/22/2024 Fatigue (ICD-10 - R53.83) 09/22/2024 Cough (ICD-10 - R05.9) 08/18/2024 Adhesive capsulitis of right shoulder (ICD-10 - M75.01) 08/18/2024 Cigarette nicotine dependence (ICD-10 - F17.200) 09/22/2024 Other [place] W/O ISSUES Plan Of Treatment Future Test Test Name Order Date 30 day Event Monitor 09/22/2024 Chest X-ray PA and lateral 09/22/2024 Electrocardiogram (EKG) 09/22/2024 Vitamin B12 and Folate 09/22/2024 Iron and TIBC* 09/22/2024 Magnesium, Serum* 09/22/2024 CBC With Differential/Platelet* 09/23/19 25 CMP 14 Comprehensive Metabolic Panel* TSH Rfx on Abnormal to Free T4 5 UA/M w/rflx Culture, Routine 09/22/2024 Insurance Providers Payer Name Payer Address Payer Phone Subscriber Number Group Number Insured Name Patient Relationship to Insured Coverage Start Date Coverage End Date MEDICARE PART A [address] [place] [phone] [id number] David Spence Self - patient is the insured 5 Medical (General) History Medical History History ICD Code GERD Heart Failure Bipolar Disorder unspecified Depression unspecified Anxiety Disorder unspecified Acute & Chronic Respiratory Failure w/Hy poxia COPD UNSPECIFIED Essential Hypertension Surgical History Surgery Date(Month/Year) Bilateral Knee Surgery Hospitalization History Reason Date(Month/Year) see surgeries
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
== END 2024-09-22 11:22 | disposition home or self-care (01) ==
PROVIDERS: PCP Internal Medicine; Visit Provider Internal Medicine
DX: R94.31 Abnormal electrocardiogram [ECG] [EKG] (principal); J44.9 Chronic obstructive pulmonary disease, unspecified; R55 Syncope and collapse
CPT/HCPCS: 71046; 93005